=== PATIENT | female | born 2005 | race Caucasian/White ===

== ENCOUNTER 2024-07-14 08:30 | Outpatient (REF) | payer OTHER, SELFPAY ==
--- NOTE | ~2024-07-14 | US_ITS ---
CLINICAL HISTORY: ACUTE ON CHRONIC LLQ PAIN US pelvis transvaginal Comparison: None Findings: Transvaginal scanning performed. Anteverted uterus is seven cm length. Normal myometrium. No endometrial lesion, 5.5 mm thickness. The right ovary measures 5.5 x 4.3 x 3.8 cm. There is a 3.8 cm simple right ovarian cyst. Left ovary is normal measuring 4 x 1.5 x 1.5 cm. Normal color Doppler of both ovaries. No free fluid. IMPRESSION: 1. 3.8 cm simple right ovarian cyst. This document has been electronically signed by: Edward Stephenson MD on 07/16/2024 10:14:49
--- OUTSIDE RECORDS SUMMARY | 2024-07-14 08:51 | XMS_ITS | Encounter Summary ---
Author Organization [facility] Address [address] [place] [address] Phone Care Team Providers Care Production Intern Name Role Phone Renetta Rueda MD Primary Care Provider [phone] Encounter Details Date Type Department Care Team (Late st Contact Info) Description 08/03/2016 Conversion Encounter [facility] - [address] [address] Markie Wang MD Social History Tobacco Use Types Packs/Day Years Used Date Smoking Tobacco: Never Assessed Comments Unknown Sex and Gender Information Value Date Recorded Sex Assigned at Not on file Legal Sex Female 12:53 AM EST Gender Identity Female 02/15/2020 10:01 AM EST Sexual Orientation Straight 05/01/2019 1: 21 PM EST documented as of this encounter Plan of Treatment Upcoming Encounters Date Type Department Care Team (Late st Contact Info) Description 09/09/2024 3:30 PM EDT Office Visit [address] [place] [address] [address] Renetta Rueda MD [address] [address] documented as of this encounter Visit Diagnoses Not on filedocumented in this encounter Care Teams Production Intern Relationship Specialty Start Date End Date Renetta Rueda MD [address] [address] PCP - General Pediatrics 12/10/22 documented as of this encounter
--- OUTSIDE RECORDS SUMMARY | 2024-07-14 08:51 | XMS_ITS | Encounter Summary ---
Author Organization [facility] Address [address] [place] [address] Phone Care Team Providers Care Wallpaper Remover Steam Name Role Phone Renetta Rueda MD Primary Care Provider [phone] Encounter Details Date Type Department Care Team (Late st Contact Info) Description 08/03/2016 Conversion Encounter [facility] - [address] [address] Markie Wang MD Social History Tobacco Use [...] Description 09/09/2024 3:30 PM EDT Office Visit [address] [address] Renetta Rueda MD [address] [address] documented as of this encounter Visit Diagnoses Not on filedocumented in this encounter Care Teams Wallpaper Remover Steam Relationship Specialty Start Date End Date Renetta Rueda MD [address] [address] PCP - General Pediatrics 12/10/22 documented as of this encounter
--- OUTSIDE RECORDS SUMMARY | 2024-07-14 08:51 | XMS_ITS | Clinical Summary ---
Author Organization [facility] Address [address] [place] [address] Phone Care Team Providers Care Keyboard Instrument Tuner Name Role Phone Randy Ames MD Primary Care Provider [phone] Allergies Active Allergy Reactions Criticality Noted Date Comments Casein Low 10/25/2022 Patient reported--Dizziness, burry vision, nausea, vomiting, almost passed out Medications Dapsone 5 % topical gelIndications: Acne vulgaris Apply thin dose topically BID 30 g 2 3 Active Active Problems Problem Noted Date Diagnosed Date Other constipation 06/27/2021 Assessment & Plan (10/25/2022 11:09 AM EDT): Seems to have resolved. Assessment & Plan (06/27/2021 2:37 PM EDT): History of longstanding constipation that comes and goes. Would rather take mineral oil than any other stool softener. I have recommended that she start a small dose daily of mineral oil (1 teaspoon) and titrate to effect of one soft stool per day. Discussed primary side effect would be anal leakage if too much. I have also asked her to do daily sitting to promote regular bowel movements. Anxiety and depression 06/27/2021 Overview (08/01/2021): Patient evaluated and scheduled for follow up. Lo reports that she started feeling low a few days ago, with poor motivation and less enjoyment in the activities she historically likes. Assessment & Plan (04/08/2023 1:09 PM EST): Lo has anxiety and depression exacerbated by her school situation this past semester. She has transferred to a school in which she knows people and has already identified ways to develop social networks. She is also getting a single room and will be meeting with disability services tomorrow. I asked her to get a therapist list from them as well. We briefly discussed medication and she is not interested in this now and will reach out if she would like to explore more. She will reach out as well if she needs the letter modified for single room. Assessment & Plan (04/08/2023 12:56 PM EST): >>ASSESSMENT AND PLAN FOR DEPRESSED MOOD WRITTEN ON 06/27/2021 2:36 PM BY RANDY AMES MD Lo endorsed depressed mood and anxiety as well. I have sent her home self- management tools and would like her to meet with a therapist to discuss different coping techniques. I have asked her to contact me if she starts having more significant symptoms. Will put in behavioral health referral today Assessment & Plan (11/14/2022 1:32 PM EDT): Patient with symptoms of anxiety and depression in the context of life stressors. Patient will benefit from symptom focused behavioral intervention. Patient is ready to learn new skills to manage symptoms. PLAN: Follow up with [facility] one week Patient goal is to learn techniques to manage symptoms of anxiety and depression. Behavioral Recommendations: Follow up Improve motivation Better utilize unstructured time Assessment & Plan (11/08/2022 1:45 PM EDT): Patient with symptoms of anxiety and depression in the context of life stressors. Patient will benefit from symptom focused behavioral intervention. Patient is ready to learn new skills to manage symptoms. PLAN: Follow up with [facility] one week Patient goal is to learn techniques to manage symptoms of anxiety and depression. Behavioral Recommendations: Follow up Improve motivation Better utilize unstructured time Assessment & Plan (11/05/2022 10:15 AM EDT): Patient with symptoms of anxiety and depression in the context of life stressors. Patient will benefit from symptom focused behavioral intervention. Patient is ready to learn new skills to manage symptoms. PLAN: Follow up with [facility] one week Patient goal is to learn techniques to manage symptoms of anxiety and depression. Behavioral Recommendations: Follow up Improve motivation Better utilize unstructured time Assessment & Plan (10/29/2022 10:15 AM EDT): Patient with symptoms of anxiety and depression in the context of life stressors. Patient will benefit from symptom focused behavioral intervention. Patient is ready to learn new skills to manage symptoms. PLAN: Follow up with [facility] one week Patient goal is to learn techniques to manage symptoms of anxiety and depression. Behavioral Recommendations: Follow up Improve motivation Better utilize unstructured time Assessment & Plan (04/08/2023 12:56 PM EST): >>ASSESSMENT AND PLAN FOR DEPRESSION, UNSPECIFIED WRITTEN ON 10/25/2022 11:09 AM BY GORAN TORIBIO MD See note by CR. >>ASSESSMENT AND PLAN FOR DEPRESSED MOOD WRITTEN ON 10/25/2022 11:09 AM BY GORAN TORIBIO MD Former therapist here in office today and checking in with her. Assessment & Plan (11/29/2021 12:04 PM EDT): Patient with symptoms of anxiety and depression in the context of life stressors. Patient will benefit from symptom focused behavioral intervention. Patient is ready to learn new skills to manage symptoms. PLAN: 1. Follow up with [facility] two weeks 2. Patient goal is to learn techniques to manage symptoms of anxiety and depression. 3. Behavioral Recommendations: a. Use coping skills such as journaling to express emotions and reflect b. Reframe negative thoughts to a more positive thought c. Continue to use already existing coping skills such as organizing and spending time with friends Assessment & Plan (10/31/2021 10:25 AM EDT): Patient with symptoms of anxiety and depression in the context of life stressors. Patient will benefit from symptom focused behavioral intervention. Patient is ready to learn new skills to manage symptoms. PLAN: 1. Follow up with [facility] two weeks 2. Patient goal is to learn techniques to manage symptoms of anxiety and depression. 3. Behavioral Recommendations: a. Use coping skills such as journaling to express emotions and reflect b. Reframe negative thoughts to a more positive thought c. Continue to use already existing coping skills such as organizing and spending time with friends Assessment & Plan (10/17/2021 7:49 PM EDT): Patient with symptoms of anxiety and depression in the context of life stressors. Patient will benefit from symptom focused behavioral intervention. Patient is ready to learn new skills to manage symptoms. PLAN: 1. Follow up with [facility] two weeks 2. Patient goal is to learn techniques to manage symptoms of anxiety and depression. 3. Behavioral Recommendations: a. Use coping skills such as journaling to express emotions and reflect b. Reframe negative thoughts to a more positive thought c. Continue to use already existing coping skills such as organizing and spending time with friends Assessment & Plan (10/03/2021 1:57 PM EDT): Patient with symptoms of anxiety and depression in the context of life stressors. Patient will benefit from symptom focused behavioral intervention. Patient is ready to learn new skills to manage symptoms. PLAN: 1. Follow up with [facility] two weeks 2. Patient goal is to learn techniques to manage symptoms of anxiety and depression. 3. Behavioral Recommendations: a. Use coping skills such as journaling to express emotions and reflect b. Reframe negative thoughts to a more positive thought c. Continue to use already existing coping skills such as organizing and spending time with friends Assessment & Plan (09/19/2021 12:34 PM EDT): Patient with symptoms of anxiety and depression in the context of life stressors. Patient will benefit from symptom focused behavioral intervention. Patient is ready to learn new skills to manage symptoms. PLAN: 1. Follow up with [facility] two weeks 2. Patient goal is to learn techniques to manage symptoms of anxiety and depression. 3. Behavioral Recommendations: a. Use coping skills such as journaling to express emotions and reflect b. Reframe negative thoughts to a more positive thought c. Continue to use already existing coping skills such as organizing and spending time with friends Assessment & Plan (08/30/2021 1:05 PM EDT): Patient with symptoms of anxiety and depression in the context of life stressors. Patient will benefit from symptom focused behavioral intervention. Patient is ready to learn new skills to manage symptoms. PLAN: 1. Follow up with [facility] two weeks 2. Patient goal is to learn techniques to manage symptoms of anxiety and depression. 3. Behavioral Recommendations: a. Use coping skills such as journaling to express emotions and reflect b. Reframe negative thoughts to a more positive thought c. Continue to use already existing coping skills such as organizing and spending time with friends Assessment & Plan (08/01/2021 7:13 PM EDT): Patient with symptoms of anxiety and depression in the context of life stressors. Patient will benefit from symptom focused behavioral intervention. Patient is ready to learn new skills to manage symptoms. PLAN: 1. Follow up with [facility] two weeks 2. Patient goal is to learn techniques to manage symptoms of anxiety and depression. 3. Behavioral Recommendations: a. Use coping skills such as journaling to express emotions and reflect b. Reframe negative thoughts to a more positive thought c. Continue to use already existing coping skills such as organizing and spending time with friends Environmental allergies 06/26/2021 Overview (06/26/2021): Cat, tree pollen, dustmite Assessment & Plan (10/25/2022 11:08 AM EDT): Doing okay - no issues at present. Adverse reaction to food 06/26/2021 Overview (06/26/2021): + testing to almond and casein by Dr. Marc Soriano. Recommended avoidance but allowed to reintroduce at a later date to see if avoidance helps with GI complaints skin Assessment & Plan (10/25/2022 11:09 AM EDT): stable Assessment & Plan (06/27/2021 2:38 PM EDT): Currently avoiding milk and almond, may re-introduce if wants to Acne vulgaris 05/01/2019 Assessment & Plan (10/25/2022 11:08 AM EDT): On topical(s). Sees derm. Assessment & Plan (12/18/2021 3:48 PM EDT): Refills provided on Dapsone. Continue BID Assessment & Plan (06/23/2020 3:19 PM EDT): Followed by derm Assessment & Plan (05/01/2019 1:25 PM EST): Followed by derm Chronic shoulder pain 12/29/2017 Overview (12/29/2017): 12/2017: seen at [facility], suggest PT, biofeedback, turmeric, will follow. Watching for anxiety. Assessment & Plan (10/25/2022 11:08 AM EDT): better Assessment & Plan (06/27/2021 2:38 PM EDT): Has 504 Assessment & Plan (06/23/2020 3:19 PM EDT): Stable. Has 504 plan for extra time due to increased time need for writing Assessment & Plan (05/01/2019 1:23 PM EST): Seen by multiple providers. Will see another specialist soon. 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) Encounters Date Type Department Care Team Description 06/04/2024 Documentation [facility] [address] [place] [address] Randy Ames MD outreach (Outreach-l/m to book overdue ov) from Last 3 Months Immunizations Immunization Administration Dates Next Due DTaP 05/17/2009,06/28/2005 DTaP / Hep B / IPV 2004,2004, 005 H1N1 Nasal 05/17/2009 HPV Vaccine 9 Valent 10/23/2015,06/21/2015,04/21 Hep A, ped/adol 07/01/2013,12/12/2012 Hep B, ped/adol 2004 Hib (PRP-T) 06/28/2005, 5,2004, 005 IPV 05/17/2009 Influenza Split 05/17/2009 MMR 08/25/2008,06/28/2005 Meningococcal B Bexsero 10/25/2022,06/27/2021 Meningococcal Conj (Menactra) MCV4P 06/23/2020,0 04/21/2015 Pneumococcal Conjugate 05/09/2005,2004,2004, 005 Tdap 04/21/2015 Unknown Vaccine 04/18/2006,2004 Varicella 08/25/2008,05/09/2005 Family History Relation Name Status Comments Father blood clots Maternal Grandfather breast cancer Maternal Grandmother high bl ood pressure, high cholesterol Mother thyroid disease Other seasonal allerg ies Paternal Grandfather kidney disease Paternal Grandmother asthma Social History Tobacco Use Types Packs/Day Years Used Date Smoking Tobacco: Never Smokeless Tobacco: Never Tobacco Cessation:Counseling Given: Not Answered Alcohol Use Standard Drinks/Week Comments Yes 1 (1 standard drink = 0.6 oz pure alcohol) monthly - denies toxic events, loss of awareness of surrounds Hunger/Food Answer Date Recorded In the last 12 months, did y ou or your family ever eat less than you felt you should because there wasn't enough money for food? No 10/24/2022 Stable Housing Answer Date Recorded Are you worried that in the next 2 months you may not have stable housing? No 10/24/2022 Transportation Concerns Answer Date Rec orded In the last 12 months, have you or your family ever had to go without healthcare because you didn't have a way to get there? No 10/24/2022 Hazards in Home Answer Date Recorded Think about the place you li ve. Do you have problems with any of the following? Pests (mice or roaches), mold, no/not working smoke detectors, water leaks, no window guards. No 2022 Financing Utilities Answer Date Recorde d In the last 12 months, has t he electric, gas, oil, or water company threatened to shut off your services in your home? No 10/24/2022 Safety at Home Answer Date Recorded Are you or your family worried about feeling saf e in your home? No 10/24/2022 Outside Support Answer Date Recorded Do you feel that you need mo re support from other people or programs to help you care for yourself or your family? No 10/24/2022 Understanding Health Concerns Answer Da te Recorded Do you need help understandi ng your or your child's healthcare needs (diagnosis, medications, plan, etc.)? No 10/24/2022 Financing Health Concerns Answer Date R ecorded In the last 12 months, was t here a time when your child needed to see a doctor or get medications or supplies but could not because of cost? No 10/24/2022 Missing School or Work Answer Date Giuseppe rded Did you or your child miss s chool or work because of a health problem that could have been avoided? No 10/24/2022 Comments No Sex and Gender Information Value Date Recorded Sex Assigned at Not on file Legal Sex Female 12:53 AM EST Gender Identity Female 02/15/2020 10:01 AM EST Sexual Orientation Straight 05/01/2019 1: 21 PM EST Last Filed Vital Signs Vital Sign Reading Time Taken Comments Blood Pressure 104/64 10/25/2022 10:28 AM EDT Pulse 72 10/25/2022 10:28 AM EDT Temperature 36.8 ??C (98.2 ??F) 10/25/2022 10:28 AM E DT Respiratory Rate 18 10/25/2022 10:28 AM EDT Oxygen Saturation 98% 10/25/2022 10:28 AM EDT Inhaled Oxygen Concentration - - Weight 61.2 kg (135 lb) 10/25/2022 10:28 AM EDT Height 170.2 cm (5' 7.01 ) 10/25/2022 10:28 AM E DT Body Mass Index 21.14 10/25/2022 10:28 AM EDT Plan of Treatment Upcoming Encounters Date Type Department Care Team (Late st Contact Info) Description 09/09/2024 3:30 PM EDT Office Visit [facility] - [address] [address] Randy Ames MD 89 [facility] [address] [place] [address] Health Maintenance Due Date Last Done Comments HIV Screening 2019 Hepatitis C Screening 2022 Influenza Vaccines (#1) 2023 03/04/2020, 05/17 COVID-19 Vaccine (3 - 2023-2 5 season) 2023 10/02/2020, 09/11/2020 Chlamydia and Gonorrhea Screening 03/18/2024 DTaP,Tdap,and Td Vaccines (7 - Td or Tdap) 04/21/2025 04/21/2015, 05/17/2009, 06/28/2005, Additional history exists Hepatitis B Vaccines Completed 2004, 2004, 2004, Additional history exists Pneumococcal Vaccine Completed 05/09/2005, 2004, 2004, Additional history exists HIB Vaccines Completed 06/28/2005, 08/2004, 2004, Additional history exists MMR Vaccines Completed 08/25/2008, 06/28/2005 Varicella Vaccines Completed 08/25/2008, 05/09/2005 IPV Vaccines Completed 05/17/2009, 08/2004, 2004, Additional history exists Hepatitis A Vaccines Completed 07/01/2013, 12/13/19 13 HPV Vaccines Completed 10/23/2015, 0 07/2015, 04/21/2015 Meningococcal Vaccine Completed 06/23/2020, 016 Men B Vaccine Completed 10/25/2022, 06/27/2021 [place] [id number] [facility] [address] [address] Care Teams Keyboard Instrument Tuner Relationship Specialty Start Date End Date Randy Ames MD [address] [place] [address] [address] [place] [address] PCP - General Pediatrics 12/10/22
--- OUTSIDE RECORDS SUMMARY | 2024-07-14 08:51 | XMS_ITS | Encounter Summary ---
Author Organization [facility] Address [address] [place] [address] Phone Care Team Providers Care Yard Jockey Name Role Phone Renetta Rueda MD Primary Care Provider [phone] Encounter Details Date Type Department Care Team (Late st Contact Info) Description 08/03/2016 Conversion Encounter [facility] - [address] [address] Markie Wang MD Social History Tobacco Use [...] Description 09/09/2024 3:30 PM EDT Office Visit [address] [address] Renetta Rueda MD [address] [address] documented as of this encounter Visit Diagnoses Not on filedocumented in this encounter Care Teams Yard Jockey Relationship Specialty Start Date End Date Renetta Rueda MD [address] [address] PCP - General Pediatrics 12/10/22 documented as of this encounter
--- OUTSIDE RECORDS SUMMARY | 2024-07-14 08:51 | XMS_ITS | Encounter Summary ---
Author Organization [facility] Address [address] [place] [address] Phone Care Team Providers Care Lift Electrician Name Role Phone Renetta Rueda MD Primary Care Provider [phone] Encounter Details Date Type Department Care Team (Late st Contact Info) Description 08/03/2016 Conversion Encounter [facility] - [address] [address] Markie Wang MD Social History Tobacco Use [...] Description 09/09/2024 3:30 PM EDT Office Visit [address] [address] Renetta Rueda MD [address] [address] documented as of this encounter Visit Diagnoses Not on filedocumented in this encounter Care Teams Lift Electrician Relationship Specialty Start Date End Date Renetta Rueda MD [address] [address] PCP - General Pediatrics 12/10/22 documented as of this encounter
== END 2024-07-14 08:31 | disposition home or self-care (01) ==
LOC: HO.UMASIMG 08:30
PROVIDERS: Visit Provider Family Medicine
DX: R10.9 Unspecified abdominal pain (principal)
CPT/HCPCS: 76830; 76856

== ENCOUNTER → 2024-07-14 13:00 | Outpatient (BNV) | payer OTHER, SELFPAY | PROVIDERS: Visit Provider Radiology Diagnostic Radiology | DX: N83.291 Other ovarian cyst, right side (principal) | CPT/HCPCS: 76830; 76856 ==